=== PATIENT | female | born 1965 | race Two or more races ===

== ENCOUNTER 2017-01-14 06:12 | Emergency (ER) | payer OTHER ==
[~2017-01-14] VITALS: Ht 162.6 cm; Wt 97.1 kg
[2017-01-14 07:37] VITALS: BP 144/81
[2017-01-14] MEDS ORDERED: BACITRACIN TOP OINT 1 UD PKG TOP ONE (08:00)
[2017-01-14] MEDS ORDERED: TETANUS-DIPTH-ACEL PERTUSSIS 0.5ML SYRG IM ONE (08:00)
[2017-01-14] MEDS ORDERED: LIDOCAINE 1% HCL (LOCAL ANESTH.) INJ 20ML MDV IJ ONE (08:00)
== END 2017-01-14 08:23 | disposition home or self-care (01) ==
LOC: ER 06:12
DX: S61.012A Laceration without foreign body of left thumb without damage to nail, initial encounter (principal); E11.9 Type 2 diabetes mellitus without complications; I10 Essential (primary) hypertension; E78.5 Hyperlipidemia, unspecified; E07.9 Disorder of thyroid, unspecified; Z23 Encounter for immunization; W26.0XXA Contact with knife, initial encounter; Y93.G9 Activity, other involving cooking and grilling; Y99.8 Other external cause status; Y92.89 Other specified places as the place of occurrence of the external cause
CPT/HCPCS: 12001; 90471; 90715; 99283; J2001